=== PATIENT | male | born 1950 | race Caucasian/White ===

== ENCOUNTER 2021-09-12 14:51 | Emergency (ER) | payer MEDICARE ==
[~2021-09-12] VITALS: Ht 175.3 cm; Wt 65.8 kg
[~2021-09-12 14:51] MED LIST: ASPIRIN EC81 MG PO; ATORVASTATIN CA20 MG PO; BRILINTA 90 MG90 MG PO; COZAAR 25MG TAB25 MG PO; ECOTRIN325 MG PO; LOPRESSOR 25 MG25 MG PO; TOPROL XL25 MG PO
== END 2021-09-12 19:50 | disposition home or self-care (01) ==
LOC: ER1 14:51
DX: U07.1 COVID-19 (principal); Z23 Encounter for immunization; I11.9 Hypertensive heart disease without heart failure; E11.9 Type 2 diabetes mellitus without complications; Z95.5 Presence of coronary angioplasty implant and graft
CPT/HCPCS: 99283; M0243; U0002

== ENCOUNTER → 2022-03-16 | Day surgery (SDC) | payer MEDICARE ==
[~2022-03-16] MED LIST changes: +ASPIRIN 325MG325 MG PO; +FLOMAX 0.4 MG0.4 MG PO; +METFORMIN HCL500 M2 PO; +NITROSTAT 0.40.4 MG SL
== END | disposition home or self-care (01) ==
LOC: OR 07:18
DX: Z12.11 Encounter for screening for malignant neoplasm of colon (principal); D12.3 Benign neoplasm of transverse colon; K64.1 Second degree hemorrhoids; K64.4 Residual hemorrhoidal skin tags; Z86.010 Personal history of colon polyps; Z80.0 Family history of malignant neoplasm of digestive organs; I11.9 Hypertensive heart disease without heart failure; E78.5 Hyperlipidemia, unspecified; K21.9 Gastro-esophageal reflux disease without esophagitis; E11.9 Type 2 diabetes mellitus without complications; E78.00 Pure hypercholesterolemia, unspecified; Z79.82 Long term (current) use of aspirin; Z79.84 Long term (current) use of oral hypoglycemic drugs; Z79.899 Other long term (current) drug therapy
CPT/HCPCS: 82962; J7040